=== PATIENT | male | born 1970 | race Caucasian/White ===

== ENCOUNTER 2017-02-17 22:24 | Emergency (ER) | payer OTHER ==
[~2017-02-17 22:24] MED LIST: ASPIR-LOW81 MG PO; LIPITOR TAB 2020 MG PO
[2017-02-18 02:28] LABS: HEMOGLOBIN 13.5 gm/dl (14.0-17.5); RED BLOOD COUNT 4.53 M/UL (4.20-5.50); WHITE BLOOD COUNT 9.9 K/UL (4.5-11.0)
[2017-02-18 02:55] LABS: BUN/CREATININE RATIO 17 (0-10)
== END 2017-02-18 05:00 | disposition home or self-care (01) ==
LOC: ER1 22:24
PROVIDERS: Family Medicine
DX: J45.909 Unspecified asthma, uncomplicated (principal); F17.200 Nicotine dependence, unspecified, uncomplicated; Z86.79 Personal history of other diseases of the circulatory system; Z79.01 Long term (current) use of anticoagulants; Z79.84 Long term (current) use of oral hypoglycemic drugs; Z79.899 Other long term (current) drug therapy
CPT/HCPCS: 36415; 71010; 80053; 82550; 82553; 83874; 84484; 85025; 85379; 93005; 94640; 94664; 96374; 99285; J2930

== ENCOUNTER → 2017-03-16 | Outpatient (CLI) | payer OTHER | LOC: KOH-I 03-09 14:00 | DX: I87.2 Venous insufficiency (chronic) (peripheral) (principal) | CPT/HCPCS: 93970 ==

== ENCOUNTER → 2017-03-29 | Outpatient (CLI) | payer OTHER | LOC: HEART 5 15:10 | DX: J44.9 Chronic obstructive pulmonary disease, unspecified (principal) | CPT/HCPCS: 94060; 94729 ==

== ENCOUNTER 2020-12-26 21:02 | Emergency (ER) | payer OTHER ==
[~2020-12-26] VITALS: Ht 180.3 cm; Wt 147.4 kg
[~2020-12-26 21:02] MED LIST changes: +ALBUTEROL2.5 MG/3 M INH; +AMMONIUM LACTA225 GM TOP; +BUMETANIDE2 MG PO; +BUPROPION XL150 MG PO; +ELIQUIS 5 MG TAB5 MG PO; +ELIQUIS5 MG PO; +FERROUS SULFAT325 M2 PO; +GABAPENTIN600 MG PO; +GLUCOPHAGE1000 MG PO; +GLUCOTROL 10 MG10 MG PO; +IMDUR ER TAB 6060 MG PO; +K-DUR TAB 20 M20 MEQ PO; +LANSOPRAZOLE30 MG PO; +LOPRESSOR 50 MG50 MG PO; +LOPRESSOR50 MG PO; +MAGIC BUTT CREAM TOP; +METAMUCIL FIBE3.4 GM PO; +METAMUCIL FREE822 GM PO; +METAMUCIL0.52 GM PO; +METOPROLOL TART50 MG PO; +MULTIPLE VITAM1 EACH PO; +POTASSIUM CHLO20 ME2 PO; +PREDNISONE10 MG PO; +REMERON 15 MG T15 MG PO; +SYNTHROID 50 M50 MCG PO; +VIIBRYD20 MG PO; +VITAMIN C 500500 MG PO; +VITAMIN D3125 MCG PO; +WELLBUTRIN XL150 MG PO; +ZENPEP DR 10,01 EACH PO; +ZENPEP PO; +ZINC50 MG PO
[2020-12-26 21:58] LABS: BUN/CREATININE RATIO 12 (0-10)
[2020-12-26 22:20] LABS: HEMOGLOBIN 10.5 gm/dl (14.0-17.5); RED BLOOD COUNT 3.26 M/UL (4.20-5.50)
== END 2020-12-27 12:12 | disposition other institution (70) ==
LOC: ER1 21:02
PROVIDERS: Emergency Medicine
DX: A41.9 Sepsis, unspecified organism (principal); R65.20 Severe sepsis without septic shock; N17.9 Acute kidney failure, unspecified; J18.9 Pneumonia, unspecified organism; E87.5 Hyperkalemia; I95.9 Hypotension, unspecified; R09.02 Hypoxemia; I10 Essential (primary) hypertension; Z20.822 Contact with and (suspected) exposure to COVID-19; F17.200 Nicotine dependence, unspecified, uncomplicated; Z23 Encounter for immunization
CPT/HCPCS: 31500; 36556; 36600; 71045; 71250; 80053; 81001; 82550; 82553; 82803; 83605; 83874; 84484; 85025; 87040; 87635; 90471; 93005; 94002; 94003; 96365; 96366; 96367; 96368; 96375; 96376; 99281; 99285; C1751; J0171; J1940; J2250; J3370; J7030; J7070

== ENCOUNTER 2021-03-06 13:34 | Emergency (ER) | payer OTHER ==
[2021-03-06 14:25] LABS: HEMOGLOBIN 9.7 gm/dl (14.0-17.5); RED BLOOD COUNT 2.87 M/UL (4.20-5.50)
== END 2021-03-06 16:25 | disposition home or self-care (01) ==
LOC: ER1 13:34
PROVIDERS: Emergency Medicine
DX: I12.0 Hypertensive chronic kidney disease with stage 5 chronic kidney disease or end stage renal disease (principal); E11.22 Type 2 diabetes mellitus with diabetic chronic kidney disease; N18.6 End stage renal disease; J44.9 Chronic obstructive pulmonary disease, unspecified; F17.210 Nicotine dependence, cigarettes, uncomplicated
CPT/HCPCS: 80048; 85025; 99283

== ENCOUNTER 2021-03-11 14:36 | Inpatient (IN) | payer OTHER ==
[~2021-03-11] VITALS: Ht 180.3 cm; Wt 127.0 kg
[2021-03-11 15:20] LABS: HEMOGLOBIN 9.3 gm/dl (14.0-17.5); RED BLOOD COUNT 2.77 M/UL (4.20-5.50); WHITE BLOOD COUNT 14.5 K/UL (4.5-11.0)
[2021-03-12] MEDS ORDERED: AMIODARONE HCL200 MG PO (01:01)
[2021-03-12] MEDS ORDERED: PEPCID40 MG PO (01:01)
[2021-03-12] MEDS ORDERED: MEGESTROL400 MG/11 PO (01:02)
[2021-03-12 03:41] LABS: HEMOGLOBIN 8.6 gm/dl (14.0-17.5); RED BLOOD COUNT 2.58 M/UL (4.20-5.50); WHITE BLOOD COUNT 12.1 K/UL (4.5-11.0)
[2021-03-13 05:49] LABS: HEMOGLOBIN 7.4 gm/dl (14.0-17.5); WHITE BLOOD COUNT 9.8 K/UL (4.5-11.0)
[2021-03-13 06:00] LABS: RED BLOOD COUNT 2.23 M/UL (4.20-5.50)
[2021-03-14 04:07] LABS: HEMOGLOBIN 7.9 gm/dl (14.0-17.5)
[2021-03-14] MEDS ORDERED: DOXYCYCLINE HY100 M2 PO (11:30)
[2021-03-14] MEDS ORDERED: MEDROL DOSEPAK 24 MG PO (11:31)
[2021-03-14] MEDS ORDERED: GABAPENTIN100 MG PO (11:31)
[2021-03-14] MEDS ORDERED: OMNICEF 300 MG300 MG PO (11:31)
[2021-03-14] MEDS ORDERED: VENTOLIN HFA 66.7 GM INH (11:31)
[2021-03-14] MEDS ORDERED: LOPRESSOR 25 MG25 MG PO (11:31)
[2021-03-14 12:11] LABS: ORGANISM ID Not indicated. (.); SPECIMEN SOURCE Urine (.); STREPTOCOCCUS PNEUMONIAE AG Negative (Negative)
[2021-03-14 14:11] LABS: HISTOPLASMA GAL'MANNAN AG UR <0.5 (<0.5 ng/mL)
[2021-03-15 07:10] LABS: ANTISTREPTOLYSIN O AB 28.4 IU/mL (0.0-200.0); COMPLEMENT C3, SERUM 161 mg/dL (82-167); COMPLEMENT C4, SERUM 24 mg/dL (12-38); HBSAG SCREEN Negative (Negative); HEP B CORE AB, TOT Negative (Negative); HEP C VIRUS AB <0.1 (0.0-0.9)
[2021-03-17 15:11] LABS: A/G RATIO 0.8 (0.7-1.7); ALPHA-1-GLOBULIN 0.2 g/dL (0.0-0.4); BETA GLOBULIN 1.1 g/dL (0.7-1.3); GAMMA GLOBULIN 1.9 g/dL (0.4-1.8); GLOBULIN, TOTAL 4.1 g/dL (2.2-3.9); IMMUNOGLOBULIN A, QN, SERUM 361 mg/dL (90-386); IMMUNOGLOBULIN G, QN, SERUM 2114 mg/dL (603-1613); IMMUNOGLOBULIN M, QN, SERUM 60 mg/dL (20-172); M-SPIKE Not Observed g/dL (Not Observed); PROTEIN, TOTAL, SERUM 7.1 g/dL (6.0-8.5)
[2021-03-17 16:11] LABS: ANTI-DSDNA ANTIBODIES 5 IU/mL (0-9)
[2021-03-17 17:11] LABS: ATYPICAL PANCA <1:20 titer (Neg:<1:20); CYTOPLASMIC (C-ANCA) <1:20 titer (Neg:<1:20); PERINUCLEAR (P-ANCA) <1:20 titer (Neg:<1:20)
== END 2021-03-14 16:47 | disposition home or self-care (01) | DRG 682 ==
LOC: ER1 14:36 → MED SURG 4 16:41 → CDU 16:41 → PROG CARE 20:32 → MED SURG 4 03-13 15:01
PROVIDERS: Emergency Medicine; Internal Medicine Nephrology; Physician Assistant; ADMIT Internal Medicine
DX: N17.9 Acute kidney failure, unspecified (principal); J18.9 Pneumonia, unspecified organism; J44.1 Chronic obstructive pulmonary disease with (acute) exacerbation; I50.32 Chronic diastolic (congestive) heart failure; I13.0 Hypertensive heart and chronic kidney disease with heart failure and stage 1 through stage 4 chronic kidney disease, or unspecified chronic kidney disease; J96.11 Chronic respiratory failure with hypoxia; J44.0 Chronic obstructive pulmonary disease with (acute) lower respiratory infection; Z20.822 Contact with and (suspected) exposure to COVID-19; E66.01 Morbid (severe) obesity due to excess calories; R53.81 Other malaise; N18.4 Chronic kidney disease, stage 4 (severe); R00.0 Tachycardia, unspecified; E87.5 Hyperkalemia; D63.1 Anemia in chronic kidney disease; E03.9 Hypothyroidism, unspecified; E83.39 Other disorders of phosphorus metabolism; F17.210 Nicotine dependence, cigarettes, uncomplicated; G47.33 Obstructive sleep apnea (adult) (pediatric); I45.10 Unspecified right bundle-branch block; E83.51 Hypocalcemia; I87.8 Other specified disorders of veins; E78.5 Hyperlipidemia, unspecified; E83.42 Hypomagnesemia; Z79.01 Long term (current) use of anticoagulants; Z86.711 Personal history of pulmonary embolism; Z86.14 Personal history of Methicillin resistant Staphylococcus aureus infection; Z93.3 Colostomy status; Z74.01 Bed confinement status; Z93.0 Tracheostomy status; Z82.49 Family history of ischemic heart disease and other diseases of the circulatory system; Z83.3 Family history of diabetes mellitus; Z90.49 Acquired absence of other specified parts of digestive tract; Z68.39 Body mass index [BMI] 39.0-39.9, adult; Z87.01 Personal history of pneumonia (recurrent)
CPT/HCPCS: 36415; 71045; 80053; 80202; 81001; 82330; 82397; 82550; 82553; 82652; 82784; 82962; 83520; 83690; 83735; 83874; 83880; 83883; 83970; 84100; 84155; 84165; 84484; 85014; 85018; 85025; 85027; 85610; 85730; 86038; 86060; 86160; 86162; 86225; 86256; 86334; 86704; 86706; 86708; 86803; 87040; 87081; 87205; 87278; 87340; 87385; 87899; 93005; 93985; 94640; 94664; 94760; 96366; 96376; 99284; G0378; J0456; J0696; J2920; J3370; J3475; J7030; J7070; P9047; U0002

== ENCOUNTER 2021-03-25 10:13 | Emergency (ER) | payer OTHER ==
[~2021-03-25] VITALS: Ht 180.3 cm; Wt 127.0 kg
[~2021-03-25 10:13] MED LIST changes: +AMIODARONE HCL200 MG PO; +DOXYCYCLINE HY100 M2 PO; +GABAPENTIN100 MG PO; +LOPRESSOR 25 MG25 MG PO; +MEDROL DOSEPAK 24 MG PO; +MEGESTROL400 MG/11 PO; +OMNICEF 300 MG300 MG PO; +PEPCID40 MG PO; +VENTOLIN HFA 66.7 GM INH
[2021-03-25 11:24] LABS: RED BLOOD COUNT 1.99 M/UL (4.20-5.50); WHITE BLOOD COUNT 18.9 K/UL (4.5-11.0)
[2021-03-25 11:27] LABS: HEMOGLOBIN 6.5 gm/dl (14.0-17.5)
[2021-03-25 11:54] LABS: BUN/CREATININE RATIO 15 (0-10)
== END 2021-03-25 18:45 | disposition short-term general hospital (02) ==
LOC: ER1 10:13
PROVIDERS: Emergency Medicine
DX: I13.0 Hypertensive heart and chronic kidney disease with heart failure and stage 1 through stage 4 chronic kidney disease, or unspecified chronic kidney disease (principal); E11.22 Type 2 diabetes mellitus with diabetic chronic kidney disease; D63.1 Anemia in chronic kidney disease; I50.9 Heart failure, unspecified; N18.9 Chronic kidney disease, unspecified; J96.92 Respiratory failure, unspecified with hypercapnia; J96.91 Respiratory failure, unspecified with hypoxia; J44.9 Chronic obstructive pulmonary disease, unspecified; Z20.822 Contact with and (suspected) exposure to COVID-19
CPT/HCPCS: 31500; 36415; 36430; 36600; 71045; 80053; 81001; 82272; 82550; 82553; 82803; 83605; 83735; 83880; 84100; 84484; 85025; 85610; 86850; 86900; 86901; 86920; 87040; 87086; 93005; 94002; 94760; 96374; 96375; 99285; J2250; J3370; J7030; P9016; U0002

== ENCOUNTER 2021-04-22 19:32 | Inpatient (IN) | payer OTHER ==
[~2021-04-22] VITALS: Ht 180.3 cm; Wt 117.9 kg
[2021-04-22 20:16] LABS: HEMOGLOBIN 8.7 gm/dl (14.0-17.5); RED BLOOD COUNT 2.69 M/UL (4.20-5.50)
[2021-04-22 20:20] LABS: WHITE BLOOD COUNT 16.1 K/UL (4.5-11.0)
[2021-04-22 20:40] LABS: BUN/CREATININE RATIO 7 (0-10)
[2021-04-22] MEDS ORDERED: GABAPENTIN600 MG PO (23:05)
[2021-04-22] MEDS ORDERED: LOPRESSOR 25 MG25 MG PO (23:07)
[2021-04-22] MEDS ORDERED: PROTONIX 40 MG40 M1 PO (23:09)
[2021-04-23] MEDS ORDERED: MUCUS RELIEF400 MG PO (02:24)
[2021-04-23 07:29] LABS: HEMOGLOBIN 7.9 gm/dl (14.0-17.5); RED BLOOD COUNT 2.5 M/UL (4.20-5.50)
[2021-04-23 07:33] LABS: WHITE BLOOD COUNT 11.6 K/UL (4.5-11.0)
[2021-04-23] MEDS ORDERED: PROTONIX 40 MG40 M1 PO (07:51)
[2021-04-23] MEDS ORDERED: CIPRO250 MG PO (07:53)
[2021-04-23] MEDS ORDERED: MYCOSTATIN CREA15 GM TOP (07:58)
[2021-04-23] MEDS ORDERED: MULTIPLE VITAM1 EACH PO (08:00)
[2021-04-23] MEDS ORDERED: BUMETANIDE1 MG PO (23:08)
[2021-04-23] MEDS ORDERED: AMIODARONE HCL200 MG PO (23:09)
[2021-04-24 02:48] LABS: HEMOGLOBIN 7.1 gm/dl (14.0-17.5); RED BLOOD COUNT 2.2 M/UL (4.20-5.50); WHITE BLOOD COUNT 10.3 K/UL (4.5-11.0)
[2021-04-24 08:15] LABS: HBSAG SCREEN Negative (Negative); HEP A AB, IGM Negative (Negative); HEP B CORE AB, IGM Negative (Negative); HEP C VIRUS AB <0.1 (0.0-0.9)
[2021-04-25 08:05] LABS: HEMOGLOBIN 7.9 gm/dl (14.0-17.5); WHITE BLOOD COUNT 10.7 K/UL (4.5-11.0)
[2021-04-25 08:07] LABS: RED BLOOD COUNT 2.5 M/UL (4.20-5.50)
[2021-04-26 06:19] LABS: WHITE BLOOD COUNT 11.3 K/UL (4.5-11.0)
[2021-04-26 06:48] LABS: RED BLOOD COUNT 2.23 M/UL (4.20-5.50)
[2021-04-26 15:11] LABS: HEMOGLOBIN 7.4 gm/dl (14.0-17.5)
[2021-04-27 03:40] LABS: HEMOGLOBIN 7.1 gm/dl (14.0-17.5); RED BLOOD COUNT 2.27 M/UL (4.20-5.50); WHITE BLOOD COUNT 10.7 K/UL (4.5-11.0)
[2021-04-27] MEDS ORDERED: AMIODARONE HCL200 MG PO (09:42)
[2021-04-27] MEDS ORDERED: MAG-OX 400 TAB400 MG PO (09:54)
[2021-04-27] MEDS ORDERED: SODIUM BICARBO650 M1 PO (09:54)
== END 2021-04-27 16:18 | disposition left against medical advice (07) | DRG 683 ==
LOC: ER1 19:32 → CDU 04-23 00:21 → ER1 04-23 00:21 → PROG CARE 04-23 08:50
PROVIDERS: Emergency Medicine; Family Medicine; Internal Medicine; Internal Medicine Nephrology; ADMIT Internal Medicine
PROC: 30233N1 Transfusion of Nonautologous Red Blood Cells into Peripheral Vein, Percutaneous Approach (ICD-10-PCS; principal; 2021-04-24)
DX: N17.9 Acute kidney failure, unspecified (principal); E66.2 Morbid (severe) obesity with alveolar hypoventilation; I50.32 Chronic diastolic (congestive) heart failure; I13.2 Hypertensive heart and chronic kidney disease with heart failure and with stage 5 chronic kidney disease, or end stage renal disease; J96.10 Chronic respiratory failure, unspecified whether with hypoxia or hypercapnia; I27.82 Chronic pulmonary embolism; E87.2 Acidosis; Z20.822 Contact with and (suspected) exposure to COVID-19; D63.8 Anemia in other chronic diseases classified elsewhere; E87.5 Hyperkalemia; D63.1 Anemia in chronic kidney disease; N18.5 Chronic kidney disease, stage 5; E83.42 Hypomagnesemia; E78.5 Hyperlipidemia, unspecified; F17.210 Nicotine dependence, cigarettes, uncomplicated; I87.8 Other specified disorders of veins; R53.81 Other malaise; E03.9 Hypothyroidism, unspecified; J44.9 Chronic obstructive pulmonary disease, unspecified; Z99.81 Dependence on supplemental oxygen; Z79.01 Long term (current) use of anticoagulants; Z93.0 Tracheostomy status; Z83.3 Family history of diabetes mellitus; Z82.49 Family history of ischemic heart disease and other diseases of the circulatory system; Z68.36 Body mass index [BMI] 36.0-36.9, adult
CPT/HCPCS: 36415; 36430; 71045; 80048; 80053; 80074; 81001; 82550; 82553; 82800; 83540; 83550; 83605; 83690; 83735; 83874; 83880; 83970; 84100; 84439; 84443; 84484; 85014; 85018; 85025; 85610; 85730; 86140; 86850; 86900; 86901; 86920; 87040; 87077; 87086; 87186; 93005; 94664; 94760; 96374; 96375; 99285; J0696; J3475; J7050; P9016; P9047; Q5105; U0002

== ENCOUNTER 2021-05-05 13:36 | Emergency (ER) | payer OTHER ==
[~2021-05-05 13:36] MED LIST changes: +BUMETANIDE1 MG PO; +CIPRO250 MG PO; +MAG-OX 400 TAB400 MG PO; +MUCUS RELIEF400 MG PO; +MYCOSTATIN CREA15 GM TOP; +PROTONIX 40 MG40 M1 PO; +SODIUM BICARBO650 M1 PO
[2021-05-05] MEDS ORDERED: POLYSPORIN OI28.3 G1 TP (14:44)
[2021-05-05] MEDS ORDERED: CEPHALEXIN500 MG PO (14:44)
== END 2021-05-05 19:06 | disposition home or self-care (01) ==
LOC: ER1 13:36
DX: T20.26XA Burn of second degree of forehead and cheek, initial encounter (principal); Z23 Encounter for immunization; I12.9 Hypertensive chronic kidney disease with stage 1 through stage 4 chronic kidney disease, or unspecified chronic kidney disease; E11.22 Type 2 diabetes mellitus with diabetic chronic kidney disease; N18.9 Chronic kidney disease, unspecified; F17.200 Nicotine dependence, unspecified, uncomplicated
CPT/HCPCS: 16020; 90471; 90715; 99283

== ENCOUNTER 2021-05-30 12:41 | Inpatient (IN) | payer OTHER ==
[~2021-05-30] VITALS: Ht 180.3 cm; Wt 122.5 kg
[~2021-05-30 12:41] MED LIST changes: +CEPHALEXIN500 MG PO; +POLYSPORIN OI28.3 G1 TP
[2021-05-30 13:11] LABS: RED BLOOD COUNT 2.5 M/UL (4.20-5.50); WHITE BLOOD COUNT 15.7 K/UL (4.5-11.0)
[2021-05-30] MEDS ORDERED: MAG-OX 400 TAB400 MG PO (16:57)
[2021-05-30] MEDS ORDERED: SODIUM BICARBO650 MG PO (16:59)
[2021-05-30] MEDS ORDERED: QUIT 22 MG PO (23:19)
--- NOTE | 2021-05-31 03:02 | NUR ---
05/30/211929 THE PATIENT'S O2 SAT DROPPED TO 67% WHILE ASLEEP AND ON 2L NC. PATIENT HAD BEEN WOKEN UP AND HIS O2 SAT WENT BACK UP TO 92%. PATIENT STATED HE HAS SLEEP APNEA AND THAT HE REFUSES THE BIPAP MACHINE AND DOES NOT WANT TO BE PLACED ON A VENTILATOR. PATIENT REFUSED AFTER BEING EDUCATED ON BENEFITS AND RISKS OF USING A BIPAP AND BEING PLACED ON A VENTILATOR IF NEEDED. HOSPITALIST WAS NOTIFIED. HOSPITALIST REQUESTED THAT IT BE PASSED ON TO DAYSHIFT.
[2021-05-31 03:37] LABS: WHITE BLOOD COUNT 12.5 K/UL (4.5-11.0)
[2021-05-31 04:05] LABS: RED BLOOD COUNT 2.19 M/UL (4.20-5.50)
[2021-05-31 04:06] LABS: HEMOGLOBIN 6.8 gm/dl (14.0-17.5)
[2021-06-01 03:13] LABS: HEMOGLOBIN 7.6 gm/dl (14.0-17.5)
[2021-06-01 03:19] LABS: RED BLOOD COUNT 2.45 M/UL (4.20-5.50)
[2021-06-02 03:03] LABS: HEMOGLOBIN 7.6 gm/dl (14.0-17.5); RED BLOOD COUNT 2.43 M/UL (4.20-5.50); WHITE BLOOD COUNT 15.4 K/UL (4.5-11.0)
[2021-06-02] MEDS ORDERED: MIDODRINE HCL2.5 MG PO (09:51)
[2021-06-02] MEDS ORDERED: LOKELMA5 GM PO (09:51)
[2021-06-02] MEDS ORDERED: CEFUROXIME500 MG PO (09:51)
[2021-06-03 03:14] LABS: HEMOGLOBIN 7.4 gm/dl (14.0-17.5); RED BLOOD COUNT 2.39 M/UL (4.20-5.50); WHITE BLOOD COUNT 16.3 K/UL (4.5-11.0)
== END 2021-06-04 15:46 | disposition home or self-care (01) | DRG 193 ==
LOC: ER1 12:41 → CDU 15:32 → PROG CARE 15:32
PROVIDERS: Emergency Medicine; Internal Medicine; ADMIT Internal Medicine
DX: J18.9 Pneumonia, unspecified organism (principal); R53.2 Functional quadriplegia; I12.0 Hypertensive chronic kidney disease with stage 5 chronic kidney disease or end stage renal disease; N18.5 Chronic kidney disease, stage 5; E87.2 Acidosis; I13.2 Hypertensive heart and chronic kidney disease with heart failure and with stage 5 chronic kidney disease, or end stage renal disease; I50.32 Chronic diastolic (congestive) heart failure; J96.11 Chronic respiratory failure with hypoxia; N17.9 Acute kidney failure, unspecified; L89.220 Pressure ulcer of left hip, unstageable; I95.9 Hypotension, unspecified; F17.210 Nicotine dependence, cigarettes, uncomplicated; E87.5 Hyperkalemia; E83.42 Hypomagnesemia; J44.9 Chronic obstructive pulmonary disease, unspecified; M62.50 Muscle wasting and atrophy, not elsewhere classified, unspecified site; D72.829 Elevated white blood cell count, unspecified; D63.1 Anemia in chronic kidney disease; E78.5 Hyperlipidemia, unspecified; G47.33 Obstructive sleep apnea (adult) (pediatric); E03.9 Hypothyroidism, unspecified; E66.01 Morbid (severe) obesity due to excess calories; Z99.81 Dependence on supplemental oxygen; Z82.49 Family history of ischemic heart disease and other diseases of the circulatory system; Z74.01 Bed confinement status; Z83.3 Family history of diabetes mellitus; Z86.711 Personal history of pulmonary embolism; S31.109S Unspecified open wound of abdominal wall, unspecified quadrant without penetration into peritoneal cavity, sequela; Z79.899 Other long term (current) drug therapy; Z79.01 Long term (current) use of anticoagulants
CPT/HCPCS: 36415; 36430; 71045; 80048; 80053; 82550; 82553; 82962; 83735; 83874; 84484; 85025; 86850; 86900; 86901; 86920; 87040; 93005; 94640; 94664; 94760; 99285; J0610; J0696; J1644; J3475; J7030; P9016; U0002

== ENCOUNTER 2021-06-14 18:38 | Inpatient (IN) | payer OTHER ==
[~2021-06-14] VITALS: Ht 180.3 cm; Wt 125.8 kg
[~2021-06-14 18:38] MED LIST changes: +CEFUROXIME500 MG PO; +LOKELMA5 GM PO; +MIDODRINE HCL2.5 MG PO; +QUIT 22 MG PO; +SODIUM BICARBO650 MG PO
[2021-06-14 19:33] LABS: HEMOGLOBIN 7.6 gm/dl (14.0-17.5); RED BLOOD COUNT 2.4 M/UL (4.20-5.50); WHITE BLOOD COUNT 15.4 K/UL (4.5-11.0)
[2021-06-14 19:59] LABS: BUN/CREATININE RATIO 13 (0-10)
[2021-06-15 05:13] LABS: HEMOGLOBIN 7.4 gm/dl (14.0-17.5); RED BLOOD COUNT 2.4 M/UL (4.20-5.50); WHITE BLOOD COUNT 15.3 K/UL (4.5-11.0)
[2021-06-16 04:02] LABS: RED BLOOD COUNT 2.23 M/UL (4.20-5.50); WHITE BLOOD COUNT 14.3 K/UL (4.5-11.0)
[2021-06-16 04:06] LABS: HEMOGLOBIN 6.9 gm/dl (14.0-17.5)
[2021-06-16 12:08] LABS: HEMOGLOBIN 8.2 gm/dl (14.0-17.5)
--- NOTE | 2021-06-16 15:34 | NUR ---
AT 1210 DR SANCHEZ NOTIFIED PT HR 190'S, BP IN THE 80'S/90'S, IV LOPRESSOR ORDERED. 2ML/2MG OF IV LOPRESSOR GIVEN, BP RECHECKED, SBP IN 50'S, MD NOTIFIED CAME TO BEDSIDE, CARDIO CONSULTED, NS BOLUS AND LETICIA BOLUS GIVEN, IV DIGOXIN GIVEN, DR DUFF CONSULTED, PT HR BACK TO ST 100'S, BP 90'S, PT BACK TO BASELINE. 1510 DR ROTH NOTIFIED PT BP 60-70'S, LETICIA BOLUS ORDERED. 1520 DR RAMIREZ AT BEDSIDE, PT GIVEN IV ALBUMIN AND 200CC NS BOLUS. HR 101, BP 90'S.
--- NOTE | 2021-06-17 02:33 | NUR ---
06/16 2130 pt refusing to wear bipap. pt refusing to be repositioned. pt verbalized understanding of education provided. 06/17 0100 pt placed on bipap. 0234 pt requesting to remove bipap. Pt again provided with education on need for bipap, pt continues to refuse. pt placed back on NC.
[2021-06-17 05:19] LABS: HBSAG SCREEN Negative (Negative); HEP A AB, IGM Negative (Negative); HEP B CORE AB, IGM Negative (Negative); HEP C VIRUS AB 0.2 (0.0-0.9)
[2021-06-17 07:49] LABS: HEMOGLOBIN 7.2 gm/dl (14.0-17.5); RED BLOOD COUNT 2.45 M/UL (4.20-5.50); WHITE BLOOD COUNT 13.5 K/UL (4.5-11.0)
[2021-06-18 05:22] LABS: HEMOGLOBIN 8.8 gm/dl (14.0-17.5); WHITE BLOOD COUNT 12.2 K/UL (4.5-11.0)
[2021-06-18 05:30] LABS: RED BLOOD COUNT 2.97 M/UL (4.20-5.50)
--- NOTE | 2021-06-18 06:03 | NUR ---
0550 PT FLIPPED INTO AFIB RVR. DR BANERJEE AWARE. PT FLIPPED BACK TO SINUS RHYTHM AT 0602 WITHOUT INTERVENTION.
[2021-06-19 05:04] LABS: HEMOGLOBIN 8.9 gm/dl (14.0-17.5); RED BLOOD COUNT 3.03 M/UL (4.20-5.50); WHITE BLOOD COUNT 11.9 K/UL (4.5-11.0)
[2021-06-21 03:15] LABS: HEMOGLOBIN 9.2 gm/dl (14.0-17.5); RED BLOOD COUNT 3.13 M/UL (4.20-5.50); WHITE BLOOD COUNT 12.9 K/UL (4.5-11.0)
[2021-06-22 12:10] LABS: HEMOGLOBIN 8.5 gm/dl (14.0-17.5); RED BLOOD COUNT 2.95 M/UL (4.20-5.50); WHITE BLOOD COUNT 11.6 K/UL (4.5-11.0)
[2021-06-23 03:06] LABS: HEMOGLOBIN 8.7 gm/dl (14.0-17.5); RED BLOOD COUNT 3.08 M/UL (4.20-5.50); WHITE BLOOD COUNT 11.4 K/UL (4.5-11.0)
[2021-06-23] MEDS ORDERED: OXYCODONE HCL5 MG PO (16:17)
[2021-06-23] MEDS ORDERED: AUGMENTIN 500-500 MG PO ×2 (16:17→16:27)
[2021-06-23] MEDS ORDERED: MIDODRINE HCL2.5 MG PO (16:30)
--- NOTE | 2021-06-23 19:10 | NUR ---
0 wound care done to groin,penis, and scrotum. patient refused to allow me to do wound care to bilateral hips, he states " my can do them when i get home" I informed him that i needed to do them prior to his discharge, he continued to refuse
--- NOTE | 2021-06-23 19:50 | NUR ---
called [facility] to [facility] spoke to [place] - special education teaching assistant nurse. advised of dialysis appointments and dressing changes needed for debrided wounds
== END 2021-06-23 20:30 | disposition home health service (06) | DRG 264 ==
LOC: ER1 18:38 → PROG CARE 06-15 00:37 → CDU 06-15 00:37 → 2 EAST 06-15 00:37 → CCU 06-15 00:37 → 2 EAST 06-15 06:58 → CCU 06-16 16:12 → PROG CARE 06-18 13:29
PROVIDERS: Emergency Medicine; Internal Medicine; Internal Medicine Interventional Cardiology; Internal Medicine Nephrology; Internal Medicine Pulmonary Disease; Surgery; ADMIT Internal Medicine
PROC: 0HBJXZZ Excision of Left Upper Leg Skin, External Approach (ICD-10-PCS; principal; 2021-06-20 11:45)
PROC: 0HBHXZZ Excision of Right Upper Leg Skin, External Approach (ICD-10-PCS; principal; 2021-06-20 11:45)
PROC: 0JBB0ZZ Excision of Perineum Subcutaneous Tissue and Fascia, Open Approach (ICD-10-PCS; principal; 2021-06-20 11:45)
PROC: 02HV33Z Insertion of Infusion Device into Superior Vena Cava, Percutaneous Approach (ICD-10-PCS; 2021-06-23)
PROC: B548ZZA Ultrasonography of Superior Vena Cava, Guidance (ICD-10-PCS; 2021-06-23)
PROC: 5A1D70Z Performance of Urinary Filtration, Intermittent, Less than 6 Hours Per Day (ICD-10-PCS; 2021-06-23)
PROC: B5181ZA Fluoroscopy of Superior Vena Cava using Low Osmolar Contrast, Guidance (ICD-10-PCS; 2021-06-23)
PROC: 0JH63XZ Insertion of Tunneled Vascular Access Device into Chest Subcutaneous Tissue and Fascia, Percutaneous Approach (ICD-10-PCS; 2021-06-23)
DX: I13.2 Hypertensive heart and chronic kidney disease with heart failure and with stage 5 chronic kidney disease, or end stage renal disease (principal); I50.33 Acute on chronic diastolic (congestive) heart failure; N18.6 End stage renal disease; G93.41 Metabolic encephalopathy; J96.21 Acute and chronic respiratory failure with hypoxia; J96.22 Acute and chronic respiratory failure with hypercapnia; N17.9 Acute kidney failure, unspecified; E66.2 Morbid (severe) obesity with alveolar hypoventilation; D68.9 Coagulation defect, unspecified; E87.2 Acidosis; E87.1 Hypo-osmolality and hyponatremia; E87.5 Hyperkalemia; L89.220 Pressure ulcer of left hip, unstageable; L89.210 Pressure ulcer of right hip, unstageable; L89.320 Pressure ulcer of left buttock, unstageable; L89.310 Pressure ulcer of right buttock, unstageable; J44.9 Chronic obstructive pulmonary disease, unspecified; Z96.661 Presence of right artificial ankle joint; F17.210 Nicotine dependence, cigarettes, uncomplicated; I48.0 Paroxysmal atrial fibrillation; I87.8 Other specified disorders of veins; R53.81 Other malaise; Z20.822 Contact with and (suspected) exposure to COVID-19; D63.1 Anemia in chronic kidney disease; E83.39 Other disorders of phosphorus metabolism; E83.42 Hypomagnesemia; Z79.01 Long term (current) use of anticoagulants; Z86.718 Personal history of other venous thrombosis and embolism; Z98.890 Other specified postprocedural states; Z86.711 Personal history of pulmonary embolism; Z99.81 Dependence on supplemental oxygen; Z93.0 Tracheostomy status; Z99.2 Dependence on renal dialysis; Z90.49 Acquired absence of other specified parts of digestive tract; Z82.49 Family history of ischemic heart disease and other diseases of the circulatory system; Z83.3 Family history of diabetes mellitus; Z79.899 Other long term (current) drug therapy
CPT/HCPCS: ECHO; 0240U; 36415; 36430; 36600; 70450; 71045; 77001; 80048; 80053; 80069; 80074; 82550; 82553; 82728; 82803; 83540; 83550; 83605; 83690; 83735; 83880; 83970; 84100; 84132; 84439; 84443; 84484; 85014; 85018; 85025; 85027; 85610; 85730; 86850; 86900; 86901; 86920; 87040; 87070; 87077; 87086; 87186; 87205; 90937; 92610; 93005; 93306; 94640; 94660; 94664; 94760; 96374; 96375; 96376; 99285; A6212; C1750; C1752; C1769; G0257; J0690; J0696; J1100; J1160; J1580; J1642; J2001; J2185; J2270; J2370; J2405; J2704; J3010; J3370; J3475; J7030; J7040; J7050; J7070; J7120; P9016; P9047; U0002

== ENCOUNTER 2021-06-28 16:43 | Emergency (ER) | payer OTHER ==
[~2021-06-28 16:43] MED LIST changes: +AUGMENTIN 500-500 MG PO; +OXYCODONE HCL5 MG PO
== END 2021-06-28 21:00 | disposition expired ==
LOC: ER1 16:43
DX: I46.9 Cardiac arrest, cause unspecified (principal); Z20.822 Contact with and (suspected) exposure to COVID-19; J44.9 Chronic obstructive pulmonary disease, unspecified; N18.6 End stage renal disease; Z99.2 Dependence on renal dialysis; I50.9 Heart failure, unspecified; F17.200 Nicotine dependence, unspecified, uncomplicated; E66.9 Obesity, unspecified
CPT/HCPCS: 31500; 92950; 99285; J0171; J0461; U0002